=== PATIENT | male | born 1990 | race Caucasian/White ===

== ENCOUNTER 2017-01-03 16:16 | Emergency (ER) ==
[2017-01-03 16:22] VITALS: BP 120/75; TEMP 98.4; BMI 20.4
--- NOTE | 2017-01-03 16:43 | ED.PDOC ---
General ED Provider: Dr. MICHELLE MOROCHO JR Chief Complaint: Sore Throat Stated Complaint: Sore throat hurts to swallow. No fever. No congestion. No cough. No SOA Choloraseptic spray and cough drops. No otc pain medications. Sore throat that started yesterday Time Seen by Physician: 16:36 Mode of Arrival: Walk-In Information Source: Patient Exam Limitations: No limitations Primary Care Provider: ELDER KO Nursing and Triage Documentation Reviewed and Agree: No Review of Systems - Review Of Systems Constitutional: Reports: Fever, Malaise, Weakness Eyes: Reports: No symptoms Ears, Nose, Mouth, Throat: Reports: Throat pain, Throat swelling Respiratory: Reports: No symptoms Cardiac: Reports: No symptoms GI: Reports: No symptoms : Reports: No symptoms Musculoskeletal: Reports: No symptoms Skin: Reports: No symptoms Neurological: Reports: No symptoms Endocrine: Reports: No symptoms Hematologic/Lymphatic: Reports: No symptoms All Other Systems: Other Past Medical History - Past Medical History Previously Healthy: Yes Endocrine: Reports: None Cardiovascular: Reports: None Respiratory: Reports: None Hematological: Reports: None Gastrointestinal: Reports: None Genitourinary: Reports: None Neuro/Psych: Reports: None Musculoskeletal: Reports: None Cancer: Reports: None - Surgical History General Surgical History: Reports: Unknown - Family History Family History: Reports: Unknown - Social History Smoking Status: Current every day smoker Hx Substance Use: No Alcohol Screening: Occasionally Physical Exam - Physical Exam Appearance: Well-appearing, Thin Ill-appearing: Mild Pain Distress: Mild Eyes: GRAZYNA, EOMI, Conjunctiva clear ENT: Ears normal, Nose normal, Oropharynx normal Neck: Supple (left tenderness patientr states tender nodes(nonpalpable)) Respiratory: Airway patent, Breath sounds clear, Breath sounds equal, Respirations nonlabored Cardiovascular: RRR, Pulses normal, No rub, No murmur GI/: Soft, Nontender, No masses, Bowel sounds normal, No Organomegaly Musculoskeletal: Normal strength, ROM intact, No edema, No calf tenderness Skin: Warm, Dry, Normal color Neurological: Sensation intact, Motor intact, Reflexes intact, Cranial nerves intact, Alert, Oriented Critical Care Note - Critical Care Note Total Time (mins): 0 Course - Course Vital Signs: Temp Pulse Resp BP Pulse Ox 01/03/17 16:16 98.4 F 80 16 120/75 98 Departure - Departure Time of Disposition: 17:32 Disposition: HOME SELF-CARE Discharge Problem: Sore throat symptom Instructions: Pharyngitis (ED) Condition: Good Pt referred to PMD for follow-up: Yes Additional Instructions: Motrin for pain chloraseptic for sore throat increase fluids antibiotic ma be indicated if confirmatory test is positive(strep screen is negative) follow up PMD 2 weeks sooner if not improved return if fever over 101.0 or if worse Allergies/Adverse Reactions: Allergies No Known Drug Allergies Adverse Reaction (Verified 01/03/17 16:22) Home Medications: Ambulatory Orders 1 [No Reported Medications] 01/03/17
[2017-01-03 17:20] LABS: FLU INTERNAL QC INTERNAL QC VALID; RAPID FLU A NEGATIVE (NEGATIVE); RAPID FLU B NEGATIVE (NEGATIVE)
== END 2017-01-03 17:43 | disposition home or self-care (01) ==
LOC: ED 16:16
DX: J02.9 Acute pharyngitis, unspecified (principal); F17.210 Nicotine dependence, cigarettes, uncomplicated
CPT/HCPCS: 87651; 87804; 87880; 99283

== ENCOUNTER 2019-02-11 04:26 | Emergency (ER) ==
[2019-02-11 04:34] VITALS: BP 162/93; TEMP 98.1; BMI 20.3
[2019-02-11] MEDS ORDERED: SODIUM CHLORIDE 1,000 ML IV STA (04:48)
[2019-02-11] MEDS ORDERED: MORPHINE 2 MG/ML SYRINGE IVP STA (04:49)
[2019-02-11] MEDS ORDERED: ZOFRAN 4 MG/2 ML IVP STA ×2 (04:49→06:42)
--- NOTE | 2019-02-11 06:30 | CT ---
EXAM: CT abdomen pelvis without and with intravenous contrast 06/14/2019. Sagittal and coronal refo rmatted images obtained HISTORY: Abdominal pain COMPARISON: None. FINDINGS: The liver and gallbladder show no acute process. The adrenal glands and kidneys show no a cute abnormality. The spleen and pancreas show no acute process. There is no bowel obstruction. Normal appendix. Unremarkable urinary bladder. No free air or free fluid. No acute osseous abnormality. IMPRESSION: 1. No urinary or bowel obstruction and normal appendix. 2. There is no acute inflammatory process identified within the abdomen or pelvis.
--- NOTE | 2019-02-11 06:41 | ED.PDOC ---
General ED Provider: Dr. ELDER KO-ER Chief Complaint: Abdominal Pain Stated Complaint: im hurting Time Seen by Physician: 04:30 Mode of Arrival: Walk-In Information Source: Patient Exam Limitations: No limitations Primary Care Provider: ELDER KO Nursing and Triage Documentation Reviewed and Agree: Yes Does patient meet sepsis criteria?: No System Inflammatory Response Syndrome: Not Applicable Sepsis Protocol: For patient's 13 years and over: Temp is 96.8 and below OR 101 and greater Pulse >90 BPM Resp >20/minute Acutely Altered Mental Status Are patient's symptoms suggestive of a new infection, such as: -Pneumonia -Skin, Soft Tissue -Endocarditis -UTI -Bone, Joint Infection -Implantable Device -Acute Abdominal Infection -Wound Infection -Meningitis -Blood Stream Catheter Infection -Unknown GI Complaint Exam - Abdominal Pain Complaint/Exam Onset: Gradual Duration: several hours Symptoms Are: Still present Timing: Constant Initial Severity: Moderate Location of Pain: Discrete Character: Reports: Dull, Aching Alleviating: Reports: Spontaneous resolution Associated Signs and Symptoms: Reports: Nausea, Vomiting. Denies: Diaphoresis, Fever, Cough, Chest pain, Dizziness, Back pain, Constipation, Blood in stool, Dysuria, Urinary frequency, Decreased urine output, Decreased appetite, Discharge, Diarrhea, Decreased activity AAA Risk Factors: Reports: None Cardiac Risk Factors: Reports: None Testicular Torsion Risk Factors: Reports: None Surgical Obstruction Risk Factors: Reports: None Related Surgical History: Reports: None Abdominal Findings: Present: None Differential Diagnoses: Constipation, Pancreatitis Quality Indicator For Non-Traumatic Chest Pain/Syncope: EKG Performed Review of Systems - Review Of Systems Constitutional: Reports: No symptoms Eyes: Reports: No symptoms Ears, Nose, Mouth, Throat: Reports: No symptoms Respiratory: Reports: No symptoms Cardiac: Reports: No symptoms GI: Reports: Abdominal pain, Nausea, Vomiting : Reports: No symptoms Musculoskeletal: Reports: No symptoms Skin: Reports: No symptoms Neurological: Reports: No symptoms Endocrine: Reports: No symptoms Hematologic/Lymphatic: Reports: No symptoms All Other Systems: Reviewed and Negative Past Medical History - Past Medical History Previously Healthy: Yes Endocrine: Reports: None Cardiovascular: Reports: None Respiratory: Reports: None Hematological: Reports: None Gastrointestinal: Reports: None Genitourinary: Reports: None Neuro/Psych: Reports: None Musculoskeletal: Reports: None Cancer: Reports: None - Surgical History General Surgical History: Reports: Unknown - Family History Family History: Reports: Unknown - Social History Smoking Status: Current every day smoker, Heavy tobacco smoker Hx Substance Use: Yes ("IN THE PAST") Alcohol Screening: Occasionally - Immunizations Tetanus Shot up to Date: Yes Physical Exam - Physical Exam Appearance: Well-appearing, No pain distress, Well-nourished Eyes: GRAZYNA ENT: Ears normal Neck: Supple Respiratory: Airway patent, Breath sounds clear, Breath sounds equal, Respirations nonlabored Cardiovascular: RRR, Pulses normal, No rub, No murmur GI/: Soft, Nontender, No masses, Bowel sounds normal, No Organomegaly Musculoskeletal: Normal strength, ROM intact, No edema, No calf tenderness Skin: Warm, Dry, Normal color Neurological: Sensation intact, Motor intact, Reflexes intact, Cranial nerves intact, Alert, Oriented Psychiatric: Affect appropriate Interpretation - Radiology Interpretation Radiology Interpretation By: Radiologist Radiology Results: Negative Exam Interpreted: CT Scan - EKG Interpretation Time of EKG #1: 06:40 Rate: Norberto Rhythm: Sinus Ectopy: None Pomeroy: NL ST Segment: Normal Interpretation: nsr Critical Care Note - Critical Care Note Total Time (mins): 0 Course - Course Hematology/Chemistry: 02/11/19 05:00 02/11/19 05:00 Orders, Labs, Meds: Lab Review 02/11/19 02/11/19 02/11/19 04:35 04:35 05:00 WBC 9.81 RBC 4.94 Hgb 16.6 Hct 46.5 MCV 94.1 H MCH 33.6 H MCHC 35.7 H RDW Coeff of Deana 11.0 L Plt Count 163 Immature Gran % (Auto) 0.1 Neut % (Auto) 77.7 Lymph % (Auto) 13.7 [place] % (Auto) 7.5 Eos % (Auto) 0.7 Baso % (Auto) 0.3 Immature Gran # (Auto) 0.0 Neut # (Auto) 7.6 H Lymph # (Auto) 1.3 [place] # (Auto) 0.7 Eos # (Auto) 0.1 Baso # (Auto) 0.0 ESR 1 Sodium Potassium Chloride Carbon Dioxide Anion Gap BUN Creatinine Estimated GFR (MDRD) BUN/Creatinine Ratio Glucose Calcium Total Bilirubin AST ALT Alkaline Phosphatase Total Creatine Kinase Troponin I Total Protein Albumin Globulin Albumin/Globulin Ratio Amylase Lipase Urine Color Yellow Urine Clarity Clear Urine pH 8.5 Ur Specific [place] 1.020 Urine Protein 1+ Urine Glucose (UA) Negative Urine Ketones 3+ Urine Blood Negative Urine Nitrite Negative Urine Bilirubin Negative Urine Urobilinogen 0.2 Ur Leukocyte Esterase Negative Ur Squamous Epith Cells 0-2 Urine Opiates Screen Negative Ur Oxycodone Screen Negative Urine Methadone Screen Negative Ur Propoxyphene Screen Negative Ur Barbiturates Screen Negative U Tricyclic Antidepress Negative Ur Phencyclidine Scrn Negative Ur Amphetamine Screen Negative U Methamphetamines Scrn Negative U Benzodiazepines Scrn Positive Urine Cocaine Screen Negative U Cannabinoids Screen Positive 02/11/19 05:00 WBC RBC Hgb Hct MCV MCH MCHC RDW Coeff of Deana Plt Count Immature Gran % (Auto) Neut % (Auto) Lymph % (Auto) [place] % (Auto) Eos % (Auto) Baso % (Auto) Immature Gran # (Auto) Neut # (Auto) Lymph # (Auto) [place] # (Auto) Eos # (Auto) Baso # (Auto) ESR Sodium 136.3 Potassium 4.17 Chloride 103.1 Carbon Dioxide 20.8 L Anion Gap 16.57 BUN 11.1 Creatinine 0.74 Estimated GFR (MDRD) 127.00 BUN/Creatinine Ratio 15.00 Glucose 113.8 H Calcium 9.77 Total Bilirubin 0.97 AST 20.4 ALT 14.0 Alkaline Phosphatase 67.4 Total Creatine Kinase 58.3 Troponin I < 0.012 Total Protein 7.73 Albumin 5.17 H Globulin 2.56 Albumin/Globulin Ratio 2.01 Amylase 80.8 Lipase 72.2 Urine Color Urine Clarity Urine pH Ur Specific [place] Urine Protein Urine Glucose (UA) Urine Ketones Urine Blood Urine Nitrite Urine Bilirubin Urine Urobilinogen Ur Leukocyte Esterase Ur Squamous Epith Cells Urine Opiates Screen Ur Oxycodone Screen Urine Methadone Screen Ur Propoxyphene Screen Ur Barbiturates Screen U Tricyclic Antidepress Ur Phencyclidine Scrn Ur Amphetamine Screen U Methamphetamines Scrn U Benzodiazepines Scrn Urine Cocaine Screen U Cannabinoids Screen Orders Category Date Time Status EKG-(ED ONLY) Stat CARDIO 02/11/19 04:48 Completed NPO REMINDER: IMAGING ONCE CARE 02/11/19 04:49 Completed ED IV/MEDIPORT/POWERPORT .ONCE EMERGENCY 02/11/19 04:48 Active AMYLASE Stat LAB 02/11/19 05:00 Completed CBC W/ AUTO DIFF Stat LAB 02/11/19 05:00 Completed COMPREHENSIVE METABOLIC PANEL Stat LAB 02/11/19 05:00 Completed CREATINE KINASE Stat LAB 02/11/19 05:00 Completed ESR Stat LAB 02/11/19 05:00 Completed LIPASE Stat LAB 02/11/19 05:00 Completed TROPONIN I Stat LAB 02/11/19 05:00 Completed URINALYSIS C & S IF INDICATED Stat LAB 02/11/19 04:35 Completed URINE DRUG SCREEN (RAPID FOR ED) [DRUG SCREEN, URINE, LAB 02/11/19 04:35 Completed RAPID] Stat 0.9 % Sodium Chloride [Saline Flush] MEDS 02/11/19 04:48 Ordered 1 syr IVF PRN PRN Morphine Sulfate [Morphine 2 mg/ml Syringe] MEDS 02/11/19 04:49 Discontinued 2 mg IVP ONCE STA Morphine Sulfate [Morphine 2 mg/ml Syringe] MEDS 02/11/19 06:42 Ordered 2 mg IVP Q4H PRN Ondansetron HCl/Pf [Zofran 4 mg/2 ml] MEDS 02/11/19 04:49 Discontinued 4 mg IVP ONCE STA Ondansetron HCl/Pf [Zofran 4 mg/2 ml] MEDS 02/11/19 06:42 Stat 4 mg IVP ONCE STA Sodium Chloride 0.9% [Sodium Chloride] 1,000 ml MEDS 02/11/19 04:48 Active IV 100 mls/hr CT ABDOMEN/PELVIS W/WO CONTRAS Stat RADS 02/11/19 04:49 Completed Medications Generic Name Dose Route Start Last Admin Trade Name Freq PRN Reason Stop Dose Admin Sodium Chloride 1,000 mls @ 100 mls/hr 02/11/19 04:48 02/11/19 05:03 Sodium Chloride IV 02/11/19 14:47 100 mls/hr .Q10H STA Administration Sodium Chloride 1 syr 02/11/19 04:48 02/11/19 05:03 Saline Flush IVF 1 syr PRN PRN Administration To flush IV Discontinued Medications Generic Name Dose Route Start Last Admin Trade Name Freq PRN Reason Stop Dose Admin Morphine Sulfate 2 mg 02/11/19 04:49 02/11/19 05:03 Morphine 2 Mg/Ml Syringe IVP 02/11/19 04:50 2 mg ONCE STA Administration Ondansetron HCl 4 mg 02/11/19 04:49 02/11/19 05:03 Zofran 4 Mg/2 Ml IVP 02/11/19 04:50 4 mg ONCE STA Administration Vital Signs: Temp Pulse Resp BP Pulse Ox 02/11/19 04:26 98.1 F 62 18 162/93 H 99 Departure - Departure Time of Disposition: 06:43 Disposition: TSF SHORT-TRM HOSP Discharge Problem: Abdominal pain Instructions: Acute Abdominal Pain (ED) Condition: Good Pt referred to PMD for follow-up: Yes IPMP verified?: No Allergies/Adverse Reactions: Allergies No Known Drug Allergies Adverse Reaction (Verified 02/11/19 04:34) Home Medications: Ambulatory Orders 1 [No Reported Medications] 01/03/17 Transfer Form Completed: Yes Disposition Discussed With: Patient, Family
[2019-02-11] MEDS ORDERED: MORPHINE 2 MG/ML SYRINGE IVP PRN (06:42)
== END 2019-02-11 07:49 | disposition short-term general hospital (02) ==
LOC: ED 04:26
DX: R10.9 Unspecified abdominal pain (principal); R11.2 Nausea with vomiting, unspecified; Z72.0 Tobacco use
CPT/HCPCS: 36415; 80053; 80306; 81001; 82150; 82550; 83690; 84484; 85025; 85651; 93005; 93010; 96361; 96374; 96375; 96376; 99285

== ENCOUNTER 2019-02-11 07:45 | Outpatient (CLI) ==
[2019-02-11 04:34] VITALS: BMI 20.3
== END 2019-02-11 08:07 | disposition short-term general hospital (02) ==
LOC: AMBL 07:45
PROVIDERS: ATTEND Internal Medicine
DX: R10.9 Unspecified abdominal pain (principal)